=== PATIENT | female | born 1950 ===

== ENCOUNTER 2017-09-19 12:29 | Emergency (ER) | payer OTHER, BC ==
[2017-09-19 12:40] VITALS: BP 160/96; PULSE 82; RESP 18; TEMP 98.7; O2SAT 100
--- NOTE | 2017-09-19 14:05 | C.PDOC ---
History Of Present Illness 67 y/o female present to the ER for pain in the left brow and left elbow. Patient reports that she slipped and fell while working resulting in contusions to the left eyebrow and left elbow. Patient states that she used an ice pack on the left brow and left elbow. Patient denies any loss of consciousness and other medical problems. - HPI Time Seen by Provider: 09/19/17 13:31 Chief Complaint (Nursing): Trauma History Per: Patient History/Exam Limitations: no limitations Past Medical History Reviewed: Historical Data, Nursing Documentation, Vital Signs Vital Signs: Last Vital Signs Temp 98.7 F 09/19/17 12:36 Pulse 82 09/19/17 12:36 Resp 18 09/19/17 12:36 BP 160/96 H 09/19/17 12:36 Pulse Ox 100 09/19/17 14:17 - Medical History PMH: HTN Surgical History: No Surg Hx Family History: States: No Known Family Hx - Social History Hx Alcohol Use: No Hx Substance Use: No Review Of Systems Except As Marked, All Systems Reviewed And Found Negative. Musculoskeletal: Positive for: Arm Pain (left elbow pain) Neurological: Negative for: Weakness, Numbness Physical Exam - Physical Exam Appears: Non-toxic, No Acute Distress Skin: Normal Color, Warm Head: Atraumatic, Normacephalic Eye(s): bilateral: Normal Inspection, PERRL, EOMI (normal eye movement), left: Other (contusion to the left lateral eyebrow) Ear(s): Bilateral: Normal Nose: Normal Oral Mucosa: Moist Neck: Supple Chest: Symmetrical Cardiovascular: Rhythm Regular Respiratory: Normal Breath Sounds, No Accessory Muscle Use Extremity: No Deformity (left elbow), Other (minor contusion to left elbow) Neurological/Psych: Oriented x3, Normal Speech, Normal Cognition, Normal Motor, Normal Sensation ED Course And Treatment O2 Sat by Pulse Oximetry: 100 (RA) Pulse Ox Interpretation: Normal - Other Rad L elbow X-Ray: Interpreted by Me (neg), Read By Radiologist - CT Scan/US max/face CT Other Rad Studies (CT/US): Interpreted By Me (neg), Radiology Report Reviewed Medical Decision Making Medical Decision Making: Plan: -- Maxillofacial W/O Contrast -- X-Ray- Left Elbow --Motrin 600 mg PO accidental trip and fall to ground @ work w superficial contusion of L lateral eyebrow and L elbow without radiological abnormalities on max/face CT nor L elbow films. Disposition Doctor Will See Patient In The: Office Counseled Patient/Family Regarding: Studies Performed, Diagnosis - Disposition Disposition: HOME/ ROUTINE Disposition Time: 14:51 Condition: GOOD Forms: [facility] (Tongan) - Clinical Impression Clinical Impression: Contusion - Scribe Statement The provider has reviewed the documentation as recorded by the Dieter Kulkarni Provider Attestation: All medical record entries made by the Dieter were at my direction and personally dictated by me. I have reviewed the chart and agree that the record accurately reflects my personal performance of the history, physical exam, medical decision making, and the department course for this patient. I have also personally directed, reviewed, and agree with the discharge instructions and disposition.
--- NOTE | 2017-09-19 15:41 | RAD ---
PROCEDURE: Radiographs of the left elbow. HISTORY: L elbow contusion COMPARISON: No prior. FINDINGS: BONES: Findings in the olecranon and radial head suggests the sequela of prior trauma. JOINTS: Normal. No osteoarthritis. SOFT TISSUES: Normal. JOINT EFFUSION: None. OTHER FINDINGS: None IMPRESSION: No acute findings related to/accounting for the clinical presentation. Additional benign and/or incidental findings described above. Concordant results with the preliminary interpretation rendered by the emergency department physician procedure.
--- NOTE | 2017-09-19 15:49 | CT ---
PROCEDURE: CT scan maxillofacial skeleton 09/19/2017 HISTORY: Status post fall with left eyebrow contusion COMPARISON: No prior study available for comparison. TECHNIQUE: Contiguous helical/transaxial CT images of the maxillofacial bones were obtained. Coronal and sagittal reformats were generated. Radiation dose: Total exam DLP = 816.99 mGy-cm. This CT exam was performed using one or more of the following dose reduction techniques: Automated exposure control, adjustment of the mA and/or kV according to patient size, and/or use of iterative reconstruction technique. FINDINGS: The current study reveals no evidence of acute maxillofacial skeletal fracture. Old fracture deformity of the right lamina papyracea present. The remaining osseous structures otherwise appear intact. There is mild left periorbital and supraorbital as well as left inferior frontal temporal scalp swelling. Globes intact and lenses appropriately located. There are no retrobulbar hemorrhages or collections. Optic nerves and extraocular musculature unremarkable. The visualized paranasal sinuses are well developed. No fluid levels seen suggest acute hemorrhage or sinusitis. Mild mucosal thickening both maxillary antra right greater than left. There is also some minor mucosal thickening within few ethmoid air cells There also appears to be an incidental tiny osteoma within 1 of the left anterior - mid ethmoid air cells. The mandible also intact. IMPRESSION: No acute fractures. Mild left periorbital and supraorbital as well as left inferior frontotemporal scalp swelling. Old fracture deformity short segment of the right lamina papyracea. Mild mucoperiosteal inflammatory changes both maxillary antra right greater than left with minimal mucosal thickening few ethmoid air cells.
== END 2017-09-19 15:04 | disposition home or self-care (01) ==
LOC: C.ER 12:29
DX: S00.12XA Contusion of left eyelid and periocular area, initial encounter (principal); S50.02XA Contusion of left elbow, initial encounter; W01.0XXA Fall on same level from slipping, tripping and stumbling without subsequent striking against object, initial encounter; Y93.89 Activity, other specified; Y92.89 Other specified places as the place of occurrence of the external cause; Y99.0 Civilian activity done for income or pay